=== PATIENT | male | born 1965 | race Caucasian/White ===

== ENCOUNTER 2016-08-24 17:15 | Inpatient (IN) | payer MEDICARE, MEDICAID ==
[~2016-08-24] VITALS: Ht 172.7 cm; Wt 121.9 kg
[2016-08-24] MEDS ORDERED: KCL CR 20 MEQ TAB PO ONE (19:47)
[2016-08-24] MEDS ORDERED: SODIUM CHLORIDE 0.9% 100 ML IV ONE (22:34)
[2016-08-24] MEDS ORDERED: CEFTRIAXONE 1 GM VIAL ONE (22:34)
[2016-08-24] MEDS ORDERED: SODIUM CHLORIDE 0.9% 1,000 ML ONE (22:35)
[2016-08-24] MEDS ORDERED: MAG HYDROX 30 ML UDC PO PRN (22:40)
[2016-08-24] MEDS ORDERED: SALINE FLUSH 10 ML FLUSH PRN (22:40)
[2016-08-24] MEDS ORDERED: ALU/MAG/SIM 30 ML UDC PO PRN (22:40)
[2016-08-24] MEDS ORDERED: ACETAMINOPHEN 325 MG TAB PO PRN (22:40)
[2016-08-24] MEDS ORDERED: BISACODYL 10 MG SUPP RECTAL PRN (22:40)
[2016-08-24] MEDS ORDERED: BISACODYL EC 5 MG TAB PO PRN (22:40)
[2016-08-25] VITALS (9 sets, daily range): BP systolic 137–187; RESP 18–20; TEMP 98.4–98.9; Ht 172.7 cm; Wt 121.9 kg
[2016-08-25] MEDS: POTASSIUM CHLORIDE PREMIX 50 ML IV SCH ×4 (02:35→07:42)
[2016-08-25] MEDS: SODIUM CHLORIDE 0.9% 1,000 ML IV SCH (02:35)
[2016-08-25] MEDS: SODIUM CHLORIDE 0.9% FLUSH BAG 500 ML IV SCH (05:55)
[2016-08-25] MEDS ORDERED: MISSING DOSE XX ONE (06:10)
[2016-08-25] MEDS: SALINE FLUSH 10 ML FLUSH SCH ×2 (08:32→20:00)
[2016-08-25] MEDS: ENOXAPARIN 40 MG/0.4 ML SYR SUBQ SCH (08:33)
[2016-08-25] MEDS: FAMOTIDINE 20 MG TAB PO SCH ×2 (08:34→20:38)
[2016-08-25] MEDS: CEFTRIAXONE 1 GM in SODIUM CHLORIDE 0.9% 50 ML IV SCH (09:02)
[2016-08-25] MEDS: LEVETIRACETAM 500 MG TAB PO SCH ×3 (09:12→20:38)
[2016-08-25] MEDS ORDERED: LEVETIRACETAM 500 MG TAB PO SCH (09:20)
[2016-08-25] MEDS ORDERED: LORAZEPAM 2 MG/ML VIAL IV PRN (09:30)
[2016-08-25] MEDS: GABAPENTIN 400 MG CAP PO SCH ×3 (10:16→20:38)
[2016-08-25] MEDS: CLOPIDOGREL 75 MG TAB PO SCH (10:16)
[2016-08-25] MEDS: PANTOPRAZOLE 40 MG TAB PO SCH ×2 (10:16→15:30)
[2016-08-25] MEDS: LISINOPRIL 20 MG TAB PO SCH (10:16)
[2016-08-25] MEDS: METOPROLOL TART 100 MG TAB PO SCH ×2 (10:17→20:38)
[2016-08-25] MEDS ORDERED: DUONEB INH PRN (11:00)
[2016-08-25] MEDS: TRAZODONE 50 MG TAB PO SCH (20:38)
[2016-08-25] MEDS: Atorvastatin 40 MG TAB PO SCH (20:38)
[2016-08-26] VITALS (7 sets, daily range): BP systolic 121–156; RESP 16–18; TEMP 97.5–98.9
[2016-08-26] MEDS: SODIUM CHLORIDE 0.9% FLUSH BAG 500 ML IV SCH (05:42)
[2016-08-26] MEDS: PANTOPRAZOLE 40 MG TAB PO SCH ×2 (06:00→15:14)
[2016-08-26] MEDS: SODIUM CHLORIDE 0.9% 1,000 ML IV SCH ×2 (08:01→18:10)
[2016-08-26] MEDS: CEFTRIAXONE 1 GM in SODIUM CHLORIDE 0.9% 50 ML IV SCH (08:02)
[2016-08-26] MEDS: CLOPIDOGREL 75 MG TAB PO SCH (08:03)
[2016-08-26] MEDS: SALINE FLUSH 10 ML FLUSH SCH ×2 (08:03→20:59)
[2016-08-26] MEDS: LEVETIRACETAM 500 MG TAB PO SCH ×3 (08:04→20:54)
[2016-08-26] MEDS: FAMOTIDINE 20 MG TAB PO SCH ×2 (08:04→20:54)
[2016-08-26] MEDS: GABAPENTIN 400 MG CAP PO SCH ×3 (08:04→20:55)
[2016-08-26] MEDS: LISINOPRIL 20 MG TAB PO SCH (08:04)
[2016-08-26] MEDS: METOPROLOL TART 100 MG TAB PO SCH (08:08)
[2016-08-26] MEDS: ENOXAPARIN 40 MG/0.4 ML SYR SUBQ SCH (08:09)
[2016-08-26] MEDS: METOPROLOL TART 25 MG TAB PO SCH ×2 (11:27→21:00)
[2016-08-26] MEDS: KCL CR 20 MEQ TAB PO SCH ×2 (11:50→20:54)
[2016-08-26] MEDS: Atorvastatin 40 MG TAB PO SCH (20:54)
[2016-08-26] MEDS: TRAZODONE 50 MG TAB PO SCH (20:54)
[2016-08-27] MEDS: SODIUM CHLORIDE 0.9% 1,000 ML IV SCH ×2 (05:49→19:45)
[2016-08-27] MEDS: PANTOPRAZOLE 40 MG TAB PO SCH ×2 (05:49→16:57)
[2016-08-27] MEDS: SODIUM CHLORIDE 0.9% FLUSH BAG 500 ML IV SCH (05:52)
[2016-08-27 05:58] VITALS: BP_SYST 148; RESP 18; TEMP 97.6
[2016-08-27 07:24] VITALS: BP_SYST 159; RESP 20; TEMP 97.5
[2016-08-27] MEDS: SALINE FLUSH 10 ML FLUSH SCH (08:00)
[2016-08-27] MEDS: KCL CR 20 MEQ TAB PO SCH ×2 (08:18→20:39)
[2016-08-27] MEDS: CLOPIDOGREL 75 MG TAB PO SCH (08:18)
[2016-08-27] MEDS: LEVETIRACETAM 500 MG TAB PO SCH ×3 (08:18→20:39)
[2016-08-27] MEDS: LISINOPRIL 20 MG TAB PO SCH (08:18)
[2016-08-27] MEDS: GABAPENTIN 400 MG CAP PO SCH ×3 (08:18→20:40)
[2016-08-27] MEDS: CEFTRIAXONE 1 GM in SODIUM CHLORIDE 0.9% 50 ML IV SCH (08:18)
[2016-08-27] MEDS: FAMOTIDINE 20 MG TAB PO SCH ×2 (08:18→20:40)
[2016-08-27] MEDS: ENOXAPARIN 40 MG/0.4 ML SYR SUBQ SCH (08:19)
[2016-08-27] MEDS: METOPROLOL TART 25 MG TAB PO SCH ×2 (08:19→20:39)
[2016-08-27 11:58] VITALS: BP_SYST 150; RESP 20; TEMP 97.6
[2016-08-27 15:02] VITALS: BP_SYST 146; RESP 20; TEMP 97.6
[2016-08-27 19:37] VITALS: BP_SYST 161; RESP 18; TEMP 98
[2016-08-27] MEDS: TRAZODONE 50 MG TAB PO SCH (20:39)
[2016-08-27] MEDS: NICOTINE 21 MG/24 HR TRANSDERM SCH (20:39)
[2016-08-27] MEDS: Atorvastatin 40 MG TAB PO SCH (20:40)
[2016-08-27 23:45] VITALS: BP_SYST 159; RESP 18; TEMP 97.8
[2016-08-28] VITALS (7 sets, daily range): BP systolic 128–158; RESP 18–20; TEMP 97.2–98
[2016-08-28] MEDS: SALINE FLUSH 10 ML FLUSH SCH ×3 (00:13→20:00)
[2016-08-28] MEDS: METOPROLOL TART 25 MG TAB PO SCH ×3 (00:24→21:10)
[2016-08-28] MEDS: SODIUM CHLORIDE 0.9% FLUSH BAG 500 ML IV SCH (05:57)
[2016-08-28] MEDS: PANTOPRAZOLE 40 MG TAB PO SCH ×2 (06:08→18:25)
[2016-08-28] MEDS: CEFTRIAXONE 1 GM in SODIUM CHLORIDE 0.9% 50 ML IV SCH (08:18)
[2016-08-28] MEDS: KCL CR 20 MEQ TAB PO SCH ×2 (08:18→21:10)
[2016-08-28] MEDS: amLODIPine 10 MG TAB PO SCH (08:19)
[2016-08-28] MEDS: LISINOPRIL 20 MG TAB PO SCH (08:19)
[2016-08-28] MEDS: CLOPIDOGREL 75 MG TAB PO SCH (08:19)
[2016-08-28] MEDS: GABAPENTIN 400 MG CAP PO SCH ×3 (08:19→21:11)
[2016-08-28] MEDS: LEVETIRACETAM 500 MG TAB PO SCH ×3 (08:19→21:11)
[2016-08-28] MEDS: FAMOTIDINE 20 MG TAB PO SCH ×2 (08:19→21:11)
[2016-08-28] MEDS: NICOTINE 21 MG/24 HR TRANSDERM SCH (08:20)
[2016-08-28] MEDS: ENOXAPARIN 40 MG/0.4 ML SYR SUBQ SCH (08:20)
[2016-08-28] MEDS: Atorvastatin 40 MG TAB PO SCH (21:11)
[2016-08-28] MEDS: TRAZODONE 50 MG TAB PO SCH (21:11)
[2016-08-28] MEDS: SODIUM CHLORIDE 0.9% 1,000 ML IV SCH (21:35)
[2016-08-29 02:55] VITALS: BP_SYST 142; RESP 18; TEMP 97.5
[2016-08-29] MEDS: SODIUM CHLORIDE 0.9% FLUSH BAG 500 ML IV SCH (06:00)
[2016-08-29] MEDS: PANTOPRAZOLE 40 MG TAB PO SCH ×2 (06:19→16:12)
[2016-08-29] MEDS: SALINE FLUSH 10 ML FLUSH SCH ×2 (08:00→20:14)
[2016-08-29 08:18] VITALS: BP_SYST 152; RESP 18; TEMP 97.8
[2016-08-29] MEDS ORDERED: MISSING DOSE XX ONE (08:50)
[2016-08-29] MEDS: CEFTRIAXONE 1 GM in SODIUM CHLORIDE 0.9% 50 ML IV SCH (08:56)
[2016-08-29] MEDS: ENOXAPARIN 40 MG/0.4 ML SYR SUBQ SCH (08:56)
[2016-08-29] MEDS: GABAPENTIN 400 MG CAP PO SCH ×3 (08:57→20:15)
[2016-08-29] MEDS: CLOPIDOGREL 75 MG TAB PO SCH (08:57)
[2016-08-29] MEDS: NICOTINE 21 MG/24 HR TRANSDERM SCH (08:57)
[2016-08-29] MEDS: METOPROLOL TART 25 MG TAB PO SCH ×2 (08:57→20:14)
[2016-08-29] MEDS: amLODIPine 10 MG TAB PO SCH (08:57)
[2016-08-29] MEDS: LEVETIRACETAM 500 MG TAB PO SCH ×3 (08:57→20:15)
[2016-08-29] MEDS: LISINOPRIL 20 MG TAB PO SCH (08:57)
[2016-08-29] MEDS: FAMOTIDINE 20 MG TAB PO SCH ×2 (08:58→20:14)
[2016-08-29] MEDS: KCL CR 20 MEQ TAB PO SCH (10:22)
[2016-08-29] MEDS: SODIUM CHLORIDE 0.9% 1,000 ML IV SCH ×2 (10:40→23:29)
[2016-08-29 10:49] VITALS: BP_SYST 143; RESP 18; TEMP 98.2
[2016-08-29 15:38] VITALS: BP_SYST 133; RESP 18; TEMP 98.5
[2016-08-29 20:00] VITALS: BP_SYST 132; RESP 18; TEMP 97.9
[2016-08-29] MEDS: Atorvastatin 40 MG TAB PO SCH (20:14)
[2016-08-29] MEDS: TRAZODONE 50 MG TAB PO SCH (20:15)
[2016-08-29 23:41] VITALS: BP_SYST 132; RESP 18; TEMP 98
[2016-08-30 04:05] VITALS: BP_SYST 126; RESP 18; TEMP 97.4
[2016-08-30] MEDS: SODIUM CHLORIDE 0.9% FLUSH BAG 500 ML IV SCH (05:17)
[2016-08-30] MEDS: PANTOPRAZOLE 40 MG TAB PO SCH ×2 (06:03→16:34)
[2016-08-30 07:02] VITALS: BP_SYST 133; RESP 20; TEMP 97.9
[2016-08-30] MEDS: FAMOTIDINE 20 MG TAB PO SCH (08:24)
[2016-08-30] MEDS: SALINE FLUSH 10 ML FLUSH SCH (08:24)
[2016-08-30] MEDS: GABAPENTIN 400 MG CAP PO SCH ×2 (08:24→16:34)
[2016-08-30] MEDS: CEFTRIAXONE 1 GM in SODIUM CHLORIDE 0.9% 50 ML IV SCH (08:24)
[2016-08-30] MEDS: LEVETIRACETAM 500 MG TAB PO SCH ×2 (08:24→16:34)
[2016-08-30] MEDS: CLOPIDOGREL 75 MG TAB PO SCH (08:24)
[2016-08-30] MEDS: amLODIPine 10 MG TAB PO SCH (08:25)
[2016-08-30] MEDS: LISINOPRIL 20 MG TAB PO SCH (08:25)
[2016-08-30] MEDS: ENOXAPARIN 40 MG/0.4 ML SYR SUBQ SCH (08:25)
[2016-08-30] MEDS: METOPROLOL TART 25 MG TAB PO SCH (08:25)
[2016-08-30] MEDS: NICOTINE 21 MG/24 HR TRANSDERM SCH (08:26)
[2016-08-30 12:01] VITALS: BP_SYST 120; RESP 20; TEMP 97.9
[2016-08-30] MEDS: SODIUM CHLORIDE 0.9% 1,000 ML IV SCH (12:15)
[2016-08-30] MEDS ORDERED: Furosemide 20 MG/2 ML VIAL IV ONE (13:20)
[2016-08-30] MEDS ORDERED: SODIUM CHLORIDE 0.9% 500 ML IV ONE (13:20)
[2016-08-30 15:18] VITALS: BP_SYST 109; RESP 18; TEMP 98.2
[2016-08-30 17:06] VITALS: BP_SYST 117; RESP 20; TEMP 98.2
== END 2016-08-30 17:23 | disposition home health service (06) | DRG 690 ==
LOC: ENRESERVDT → ENRESERVTM → ER 17:15 → EMR 22:36 → ENPENDDIS 22:36 → 4THE 23:53 → 4NT 08-28 15:39
PROVIDERS: ADMIT Internal Medicine; ATTEND Internal Medicine
DX: N39.0 Urinary tract infection, site not specified (principal); Z89.611 Acquired absence of right leg above knee; R00.1 Bradycardia, unspecified; E87.6 Hypokalemia; B96.20 Unspecified Escherichia coli [E. coli] as the cause of diseases classified elsewhere; G40.909 Epilepsy, unspecified, not intractable, without status epilepticus; I73.9 Peripheral vascular disease, unspecified; I25.10 Atherosclerotic heart disease of native coronary artery without angina pectoris; R53.1 Weakness; Z86.73 Personal history of transient ischemic attack (TIA), and cerebral infarction without residual deficits; Z95.5 Presence of coronary angioplasty implant and graft; E78.5 Hyperlipidemia, unspecified; F17.210 Nicotine dependence, cigarettes, uncomplicated; Z95.1 Presence of aortocoronary bypass graft; R19.7 Diarrhea, unspecified
CPT/HCPCS: 36415; 71010; 80048; 80053; 81001; 82274; 82553; 83735; 83880; 84132; 84439; 84443; 84484; 85025; 87040; 87045; 87046; 87088; 87186; 87493; 87804; 94799; 99223; 99232; 99233; 99239